=== PATIENT | male | born 1965 ===

== ENCOUNTER → 2022-08-10 13:32 | Outpatient (BNVA) | payer OTHER, SELFPAY | PROVIDERS: PCP Internal Medicine; Visit Provider Nurse Practitioner Family | DX: G20 Parkinson's disease (principal); G24.9 Dystonia, unspecified | CPT/HCPCS: 99212 ==

== ENCOUNTER 2023-02-22 13:50 | Outpatient (AMB) | payer OTHER, SELFPAY ==
--- NOTE | 2023-02-22 13:52 | A.OFFVIS_ITS ---
Intake Vital Signs 02/22/23 14:23 Height 5 ft 5 in Weight 198 lb 6 oz BMI 33.0 BP 134/72 Blood Pressure Location Rt brachial Position Sitting Intake Visit Reasons: followup-# not in sv Intake Note: Patient presents for follow up. Patient states I'm getting alot of stiff neck and i was wondering if she can get me some medication. Allergies clindamycin Allergy (Unknown, Verified 02/22/23 14:24) Hives Medication List - Last Reconciled 02/22/23 by JOANNA Holley acetaminophen 650 mg PO Q6H PRN aspirin (Adult Low Dose Aspirin) 81 mg PO DAILY atorvastatin 80 mg PO DAILY bisacodyl 10 mg SD DAILY PRN calcium carbonate (Antacid (calcium carbonate)) 200 mg PO QID carbidopa-levodopa 25-100 mg 2 tabs orally 5xday; carbidopa-levodopa 48.75-195 mg ER (Rytary) 2 caps PO QID 30 days carvedilol 25 mg PO BID clonidine HCl 0.2 mg PO BID escitalopram oxalate 10 mg PO DAILY fluticasone propionate 50 mcg/actuation sprays intranasal hydralazine 100 mg PO PRN isosorbide dinitrate 20 mg PO TID lactulose mL PO melatonin 5 mg PO BEDTIME PRN pantoprazole 40 mg PO DAILY pramipexole 0.75 mg PO Q8H prazosin 10 mg PO BEDTIME PRN rifaximin (Xifaxan) 550 mg PO BID thiamine HCl (vitamin B1) 100 mg PO DAILY torsemide 20 mg PO DAILY trazodone 75 mg PO BEDTIME PRN valsartan 40 mg PO DAILY warfarin 3 mg PO DAILY HPI HPI Comments History of Present Illness Details 57-yr-old male presents for f/u visit, a ccompanied by staff member from [facility]. Pt states he was admitted to SNF for rehab after having repeated falls. His CD- LD has been reduced d/t dyskinesias, and his Pramipexole was recently increased d/t breakthrough tremor. He is concerned about worsening neck stiffness, which worsens as his next CD-LD dose becomes due. Denies nay shooting neck pain or headaches. Pt's current PD medication regimen: CD-LD 25-100mg 2 tabs qid and Pramipexole 1 mg tid Do medication effects last between doses: no ADL's: Pt states he is Ind w/ ADLs. Swallowing: No issues- states he did have some swallowing issues but this is resolved. Cough: No issues Drooling: None Orthostatic lightheadedness: None Constipation: None Freezing: None Stiffness: Increased neck stiffness. Tremor: Some increased tremor. Dyskinesia: Not as much Falls: none Hallucinations: none Memory: No issues Sleep: sleeping better Exercise: trying to do some PT exercise PFSH Medical History GERD (gastroesophageal reflux disease) CVA (cerebral vascular accident) Diabetes Anemia of chronic disease Pulmonary embolism Heart failure with preserved ejection fraction Chronic kidney disease HTN (hypertension) Social History Alcohol intake: never Patient Tobacco Use Status: Never used Tobacco Review of Systems Const All systems reviewed & are unremarkable except as noted in HPI and below Physical Exam Vital Signs: Last Vital Signs BP 134/72 02/22/23 14:23 BMI result Body Mass Index 33.0 Const General: cooperative and no acute distress Resp Effort & Inspection: normal respiratory effort and able to speak in complete sentences Back/Spine/Pelvis Other: Bilateral posterior cervical tightness- mild Cervical ROM: full Left Spurling: normal Right Spurling: normal. Neuro Other: Expression: Decreased expression. No oral dyskinesias Voice: Soft voice Tremor: No tremor Tone: BUE Dyskinesia: BLE dyskinesia- mild FFM: Bradykinesia Foot taps: Bradykinesia Gait: Stands easily, short steps, unsteady w/o walker, steady w/ walker Psych: Pleasant affect General: patient oriented x3 DTRs dulled throughout Assessment & Plan Assessment & Plan (1) Parkinson's disease without dyskinesia: Code(s): G20.A1 - Parkinson's disease without dyskinesia, without mention of fluctuations (2) Rigidity: Code(s): R29.898 - Other symptoms and signs involving the musculoskeletal system Plan Start Rytary 48.75-195mg cap- 2 caps QID- in hopes this improves on-times w/o inducing bothersome dyskinesias. When Rytary available- stop CD-LD 25-100mg 2 tabs 4 x's per day. Continue Pramipexole 1mg tid- would not increase further d/t risk for compulsive behaviors. Continue exercise. Future considerations: Amantadine/Gocovri. f/u in 4 months or sooner prn Medications: New carbidopa-levodopa 48.75-195 mg ER (Rytary) divide evenly over waking hours 2 caps PO QID 30 days 240 caps 3RF Coding Level of Care Code Est Pt Level 4 (65432) Diagnoses Parkinson's disease without dyskinesia G20.A1 Rigidity R29.898
[2023-02-22 14:23] VITALS: BP 134/72; BMI 33.0
== END 2023-02-22 15:15 | disposition home or self-care (01) ==
PROVIDERS: PCP Internal Medicine; Visit Provider Nurse Practitioner Family
DX: G20.A1 Parkinson's disease without dyskinesia, without mention of fluctuations (principal); R29.898 Other symptoms and signs involving the musculoskeletal system
CPT/HCPCS: 99214

== ENCOUNTER → 2023-02-22 13:50 | Outpatient (BNVA) | payer OTHER, SELFPAY | PROVIDERS: PCP Internal Medicine; Visit Provider Nurse Practitioner Family | DX: G20.A1 Parkinson's disease without dyskinesia, without mention of fluctuations (principal); R29.898 Other symptoms and signs involving the musculoskeletal system | CPT/HCPCS: 99212 ==